=== PATIENT | female | born 1955 ===

== ENCOUNTER 2018-11-11 13:06 | Emergency (ER) | payer OTHER ==
[~2018-11-11] VITALS: Ht 162.6 cm; Wt 69.9 kg
[2018-11-11] MEDS ORDERED: ZITHROMAX TRI-500 MG PO (18:32)
[2018-11-11] MEDS ORDERED: FLONASE ALLERG9.9 ML NASAL (18:32)
[2018-11-11] MEDS ORDERED: KETO10TA2 PO (18:32)
[2018-11-11] MEDS ORDERED: MUCINEX DM ER1 EAC1 PO (18:32)
== END 2018-11-11 20:10 | disposition home or self-care (01) ==
LOC: ER 13:06
DX: J06.9 Acute upper respiratory infection, unspecified (principal); J32.8 Other chronic sinusitis